=== PATIENT | male | born 1960 | race Hispanic/Latino ===

== ENCOUNTER 2017-10-09 09:03 | Day surgery (SDC) | payer MEDICAID ==
[2017-10-04 11:10] VITALS: BMI 27.8
[2017-10-09] MEDS ORDERED: Lidocaine 1%/Epinephrine 1:100000 30 ml vial IJ ONE (10:23)
[2017-10-09] MEDS ORDERED: Bupivacaine HCl 0.25% PF (10 ml) Inj ONE ×2 (10:25→10:27)
[2017-10-09] MEDS ORDERED: ceFAZolin IV 2 gm in Dextrose 2 GM/50 ML BAG IVPB ONE (10:27)
[2017-10-09] MEDS ORDERED: Midazolam 2 MG/2 ML VIAL ONE (10:48)
[2017-10-09] MEDS ORDERED: Propofol 10 mg/ml Inj (20 ML) ONE (10:48)
[2017-10-09] MEDS ORDERED: Oxycodone/Acetaminophen 5/325 mg Tab PO PRN (11:48)
--- NOTE | 2017-10-09 11:52 | PCM.SURG1 ---
Surgeon's Initial Post Op Note - Surgeon's Notes Surgeon: Dr. Clark Artificial Stone Applicator: Nicola PGY1, Fran MARKHAM Type of Anesthesia: IV Sedation, Local Pre-Operative Diagnosis: Sebaceous cyst of back Operative Findings: Sebaceous cyst of back Post-Operative Diagnosis: Sebaceous cyst of back Operation Performed: Excision of Sebaceous cyst of back Specimen/Specimens Removed: Sebaceous cyst of back Estimated Blood Loss: EBL {In ML}: 10 Blood Products Given: N/A Drains Used: No Drains Post-Op Condition: Good Date of Surgery/Procedure: 10/09/17 Time of Surgery/Procedure: 11:00
[2017-10-09 12:24] VITALS: O2SAT 97
[2017-10-09 12:49] VITALS: BP 124/74; PULSE 75; RESP 17; TEMP 97.6
--- NOTE | 2017-10-14 03:08 | OP ---
PROCEDURE DATE: 10/09/2017. PREOPERATIVE DIAGNOSIS: Sebaceous cyst of the back approximately 3 x 2 cm size. POSTOPERATIVE DIAGNOSIS: Sebaceous cyst of the back approximately 3 x 2 cm size. PROCEDURES: 1. Excision of sebaceous cyst of the mid back 3 x 2 cm size. 2. Layered closure of the wound 3 x 2 size. SURGEON: Terrence Clark MD CHANNEL SPECIALIST: Juarez Petersen, PGY-1 resident. TYPE OF ANESTHESIA: Local anesthesia plus sedation. ESTIMATED BLOOD LOSS: Around 10 mL. DRAIN: None. PATHOLOGY: Sebaceous cyst sent for pathology. COMPLICATIONS: None. INTRAOPERATIVE FINDINGS: The patient had approximately 3 x 2 cm irregular shaped sebaceous cyst of mid back. DESCRIPTION OF PROCEDURE: On intraoperative steps, this 56-year-old male was diagnosed with sebaceous cyst of the mid back. The patient was consented for the excision, brought to the OR, placed in right lateral position. The back was prepped and draped in an usual sterile fashion. Local anesthesia was injected and mild sedation was given. An elliptical incision was made of approximately 3 x 2 cm size and upper and lower flap was created. The dissection was carried down deep up to the subcutaneous tissue and the fascia and the cyst was completely excised. Hemostasis was achieved and now the lower flap was sutured to the underlying fascia in subcu, upper flap was sutured with underlying fascia in subcu, another layer of subcu with 2-0 Vicryl, another layer of the subcu with 3-0 Vicryl, skin with 4-0 Monocryl, and another layer of the skin with 5-0 nylon interrupted sutures and dry sterile dressing was applied. The patient tolerated the procedure well. Count of the instruments and gauze was correct. There was no apparent complication. The patient was extubated in the OR, sent to the postanesthesia care unit in stable condition. Terrence Clark MD
== END 2017-10-09 12:46 | disposition home or self-care (01) ==
LOC: C.SDS 09:03
PROVIDERS: ATTEND Surgery Surgical Critical Care
DX: L72.0 Epidermal cyst (principal)
CPT/HCPCS: 11403; 12032; 88304; J0690; J2250; J2704; J3010

== ENCOUNTER 2017-11-18 09:38 | Day surgery (SDC) | payer MEDICAID ==
[2017-11-18 10:56] VITALS: BMI 28.5
--- NOTE | 2017-11-18 12:36 | CP.SDSHP ---
Same Day Surgery H & P - History Proposed Procedure: colonoscopy Pre-Op Diagnosis: colon ca screen - Allergies Allergies: Allergies No Known Allergies Allergy (Verified 10/04/17 11:08) - Physical Exam General Appearance: nl Vital Signs: Vital Signs 11/18/17 10:56 Temperature 98.4 F Pulse Rate 78 Respiratory 19 Rate Blood Pressure 152/89 H O2 Sat by Pulse 98 Oximetry Mental Status: Alert & Oriented x3 Neuro: WNL Heart: WNL Lungs: WNL GI: WNL - {Optional Preform as Required} Abdomen: WNL - Impression Impression: colon ca screening Pt. Evaluated Today:Candidate for Anesthesia & Procedure: Yes - Date & Time Date: 11/18/17 Time: 12:36 Short Stay Discharge - Short Stay Discharge Admitting Diagnosis/Reason for Visit: COLON CA SCREENING Disposition: HOME/ ROUTINE
[2017-11-18] MEDS ORDERED: Propofol 10 mg/ml Inj (20 ML) ONE ×2 (12:40→13:00)
[2017-11-18] MEDS ORDERED: Lactated Ringer's 1,000 ML IV ONE (12:40)
[2017-11-18 13:31] VITALS: TEMP 98.9; O2SAT 100
[2017-11-18 13:44] VITALS: RESP 12
[2017-11-18 14:27] VITALS: BP 141/84; PULSE 66
== END 2017-11-18 13:20 | disposition home or self-care (01) ==
LOC: C.ENDO 09:38
PROVIDERS: ATTEND Internal Medicine
DX: D12.5 Benign neoplasm of sigmoid colon (principal); K64.8 Other hemorrhoids; K63.89 Other specified diseases of intestine; K57.90 Diverticulosis of intestine, part unspecified, without perforation or abscess without bleeding
CPT/HCPCS: 45388; 88305; J2704; J7120